=== PATIENT | female | born 1970 | race Caucasian/White ===

== ENCOUNTER → 2021-09-23 | Day surgery (SDC) | payer OTHER ==
[~2021-09-23] MED LIST: ALBUTEROL0.63 MG/3 INH; ASPIRIN CHEWABL81 MG PO; FLOVENT DISKUS50 MCG INH; METOPROLOL TART25 MG PO; NEURONTIN600 MG PO; PROAIR HFA8.5 GM INH; ROXICODONE5 MG PO; ZESTRIL20 MG PO; [UNRECOGNIZED DRUG - OTHER] PO
== END | disposition home or self-care (01) ==
LOC: OR 11:50
DX: J98.59 Other diseases of mediastinum, not elsewhere classified (principal); R91.8 Other nonspecific abnormal finding of lung field; R59.0 Localized enlarged lymph nodes; J44.9 Chronic obstructive pulmonary disease, unspecified; I10 Essential (primary) hypertension; K21.9 Gastro-esophageal reflux disease without esophagitis; Z87.891 Personal history of nicotine dependence; Z79.82 Long term (current) use of aspirin; Z79.899 Other long term (current) drug therapy; Z72.89 Other problems related to lifestyle
CPT/HCPCS: J0171; J1100; J2001; J2250; J2405; J2704; J3010

== ENCOUNTER → 2021-10-01 | Outpatient (CLI) | payer OTHER | LOC: MRI 13:00 | DX: C34.90 Malignant neoplasm of unspecified part of unspecified bronchus or lung (principal); R91.1 Solitary pulmonary nodule; K76.9 Liver disease, unspecified; M89.9 Disorder of bone, unspecified; R90.89 Other abnormal findings on diagnostic imaging of central nervous system | CPT/HCPCS: 70553; A9577 ==

== ENCOUNTER 2021-10-02 12:23 | Inpatient (IN) | payer OTHER ==
[~2021-10-02] VITALS: Ht 162.6 cm; Wt 71.0 kg
[2021-10-02 13:16] LABS: HEMOGLOBIN 17.9 gm/dl (12.3-15.3); RED BLOOD COUNT 5.47 M/UL (4.00-5.10); WHITE BLOOD COUNT 21.3 K/UL (4.5-11.0)
[2021-10-02 13:49] LABS: BUN/CREATININE RATIO 32 (0-10)
[2021-10-03 06:26] LABS: WHITE BLOOD COUNT 24.7 K/UL (4.5-11.0)
[2021-10-03 06:30] LABS: HEMOGLOBIN 15.3 gm/dl (12.3-15.3); RED BLOOD COUNT 4.68 M/UL (4.00-5.10)
[2021-10-03 06:51] LABS: BUN/CREATININE RATIO 35 (0-10)
--- NOTE | 2021-10-03 15:26 | NUR ---
PT C/O STRONGER DISCOMFORT , PAIN MEDS GIVEN ORDERED. SHE CONTINUES TO HAVE FAMILY AT THE BEDSIDE.
--- NOTE | 2021-10-03 17:21 | NUR ---
velasquez catheter placement checked, pt had saturated her bed.
--- NOTE | 2021-10-03 18:16 | NUR ---
pt on 4 liters oxygen. her sats were 89%
[2021-10-04 04:46] LABS: HEMOGLOBIN 14.4 gm/dl (12.3-15.3); RED BLOOD COUNT 4.41 M/UL (4.00-5.10); WHITE BLOOD COUNT 26.7 K/UL (4.5-11.0)
[2021-10-04 05:09] LABS: BUN/CREATININE RATIO 43 (0-10)
--- NOTE | 2021-10-04 08:55 | NUR ---
WHEN AM ASSESSMENT DONE PT SATS 89 ON 4LNC RESPIRATORY INCEASED EVER SO OFTEN TO ACCOMODATE OXYGEN NEEDS UPTO 8L HIGH FLOW ANAD STILL LABORED WITH SATS 85%. DR HOPKINS NOTIFIED AND NEW ORDERS TO BE DONE INCLUDING AIRVO.
--- NOTE | 2021-10-04 10:04 | NUR ---
REPORT CALLED TO [facility] AND AWAITING DR HOPKINS SEEING PT AND SHE WILL GO TO ROOM [id number]
[2021-10-05 05:02] LABS: RED BLOOD COUNT 4.34 M/UL (4.00-5.10); WHITE BLOOD COUNT 25.7 K/UL (4.5-11.0)
[2021-10-05 05:54] LABS: BUN/CREATININE RATIO 49 (0-10)
== END 2021-10-08 17:46 | disposition expired | DRG 871 ==
LOC: ER1 12:23 → CCU 14:58 → CDU 14:58 → MED SURG 4 17:29 → CCU 10-04 10:25 → M/S 10-06 17:33
PROVIDERS: Emergency Medicine; Physician Assistant; ADMIT Internal Medicine
PROC: 8E0ZXY6 Isolation (ICD-10-PCS; principal; 2021-10-02)
PROC: XW033E5 Introduction of Remdesivir Anti-infective into Peripheral Vein, Percutaneous Approach, New Technology Group 5 (ICD-10-PCS; 2021-10-02)
PROC: 3E0333Z Introduction of Anti-inflammatory into Peripheral Vein, Percutaneous Approach (ICD-10-PCS; 2021-10-02)
PROC: 3E03329 Introduction of Other Anti-infective into Peripheral Vein, Percutaneous Approach (ICD-10-PCS; 2021-10-02)
PROC: B24BZZZ Ultrasonography of Heart with Aorta (ICD-10-PCS; 2021-10-03)
PROC: 5A09357 Assistance with Respiratory Ventilation, Less than 24 Consecutive Hours, Continuous Positive Airway Pressure (ICD-10-PCS; 2021-10-04)
PROC: 5A0945A Assistance with Respiratory Ventilation, 24-96 Consecutive Hours, High Flow/Velocity Cannula (ICD-10-PCS; 2021-10-04)
DX: A41.9 Sepsis, unspecified organism (principal); I50.31 Acute diastolic (congestive) heart failure; J12.82 Pneumonia due to coronavirus disease 2019; J18.9 Pneumonia, unspecified organism; U07.1 COVID-19; K85.90 Acute pancreatitis without necrosis or infection, unspecified; J96.01 Acute respiratory failure with hypoxia; J96.02 Acute respiratory failure with hypercapnia; C34.90 Malignant neoplasm of unspecified part of unspecified bronchus or lung; J44.0 Chronic obstructive pulmonary disease with (acute) lower respiratory infection; C78.7 Secondary malignant neoplasm of liver and intrahepatic bile duct; C79.31 Secondary malignant neoplasm of brain; C79.81 Secondary malignant neoplasm of breast; K56.7 Ileus, unspecified; C78.6 Secondary malignant neoplasm of retroperitoneum and peritoneum; J44.1 Chronic obstructive pulmonary disease with (acute) exacerbation; I31.3 Pericardial effusion (noninflammatory); N39.0 Urinary tract infection, site not specified; R65.20 Severe sepsis without septic shock; E88.09 Other disorders of plasma-protein metabolism, not elsewhere classified; K21.9 Gastro-esophageal reflux disease without esophagitis; M54.50 Low back pain, unspecified; G89.29 Other chronic pain; F32.A Depression, unspecified; R63.4 Abnormal weight loss; Z66 Do not resuscitate; G43.909 Migraine, unspecified, not intractable, without status migrainosus; R74.01 Elevation of levels of liver transaminase levels; K59.00 Constipation, unspecified; F17.200 Nicotine dependence, unspecified, uncomplicated; B96.20 Unspecified Escherichia coli [E. coli] as the cause of diseases classified elsewhere; I11.0 Hypertensive heart disease with heart failure; F41.9 Anxiety disorder, unspecified; I27.20 Pulmonary hypertension, unspecified; Z98.890 Other specified postprocedural states; Z86.73 Personal history of transient ischemic attack (TIA), and cerebral infarction without residual deficits; Z87.442 Personal history of urinary calculi; Z79.899 Other long term (current) drug therapy; Z80.1 Family history of malignant neoplasm of trachea, bronchus and lung; Z79.82 Long term (current) use of aspirin; Z51.5 Encounter for palliative care
CPT/HCPCS: ECHO; 0240U; 36415; 36600; 71045; 74018; 80053; 80202; 81001; 82550; 82553; 82803; 83605; 83690; 83735; 83880; 84484; 85025; 85610; 86140; 87040; 87077; 87086; 87186; 93005; 93306; 94640; 94664; 94760; 96365; 96375; 99285; J0248; J1100; J1650; J1940; J2060; J2185; J2270; J2405; J2543; J3370; J7030; J7040; J7070; Q9967